=== PATIENT | female | born 1985 | race Caucasian/White ===

== ENCOUNTER 2018-05-23 10:12 | Emergency (ER) | payer OTHER, MEDICAID ==
--- NOTE | 2018-05-23 10:23 | ER Report ---
History and Physical Time Seen By MD: 10:23 HPI/ROS Arrived to [place] from [place] 3 days ago with boyfriend and children. Currently staying with boyfriend's parents. History of anxiety/depression/marijuana use and abuse. Brought in by boyfriend for severe panic attack and SI. States she does not want to live in [place] any longer. States multiple times that she needs to smoke marijuana, and plans to go to [place]. Allergies: Coded Allergies: adhesive (Verified Adverse Reaction, Intermediate, RASH, 05/26/18) NICOTINE PATCH CAUSES RASH AT APPLICATION SITE Home Meds Reported Medications Nicotine Polacrilex (NICORETTE) 2 Mg Gum, 2 MG BC Q1-2H PRN for NICOTINE REPLACEMENT, GUM 05/25/18 Bupropion Hcl (WELLBUTRIN SR) 150 Mg Tablet.er, 150 MG PO QAM, TAB 05/25/18 Hydroxyzine Pamoate (VISTARIL) 50 Mg Capsule, 50 MG PO QHS, CAPSULE 05/25/18 Multivits,Th W-Fe,Other Min (THERA-M) 1 Each Tablet, 1 EACH PO QDAY 05/25/18 Hydroxyzine Pamoate (VISTARIL) 25 Mg Capsule, 25 MG PO QDAY PRN for PANIC ATTACK, CAPSULE YOU CAN TAKE THIS EVERY 24 HOURS NEEDED FOR A PANIC ATTACK 05/23/18 Unable To Obtain Past Medical: Refused Physical Exam GE: Alert, awake, not cooperative CV: RRR no m/r/g Lungds cta b/l Psych: tearful, hyperventilating, endorses SI. No HI Medical Decision Making Data Points Laboratory Hematology Test 05/23/18 10:48 Red Blood Count 4.92 M/uL (4.17-5.56) Mean Corpuscular Volume 95.0 fL (80.0-96.0) Mean Corpuscular Hemoglobin 32.6 pg (26.0-33.0) Mean Corpuscular Hemoglobin Concent 34.3 g/dL (32.0-36.0) Red Cell Distribution Width 13.0 % (11.5-14.5) Mean Platelet Volume 9.0 fL (7.2-11.1) Neutrophils (%) (Auto) 55.9 % (39.4-72.5) Lymphocytes (%) (Auto) 35.1 % (17.6-49.6) Monocytes (%) (Auto) 4.8 % (4.1-12.4) Eosinophils (%) (Auto) 3.5 % (0.4-6.7) Basophils (%) (Auto) 0.7 % (0.3-1.4) Nucleated RBC Relative Count (auto) 0.0 /100WBC Neutrophils # (Auto) 4.6 K/uL (2.0-7.4) Lymphocytes # (Auto) 2.9 K/uL (1.3-3.6) Monocytes # (Auto) 0.4 K/uL (0.3-1.0) Eosinophils # (Auto) 0.3 K/uL (0.0-0.5) Basophils # (Auto) 0.1 K/uL (0.0-0.1) Nucleated RBC Absolute Count (auto) 0.00 K/uL Sodium Level 141 mmol/L (137-145) Potassium Level 4.1 mmol/L (3.5-5.0) Chloride Level 108 mmol/L (98-107) Carbon Dioxide Level 21 mmol/L (22-31) Blood Urea Nitrogen 13 mg/dl (7-18) Creatinine 0.80 mg/dl (0.52-1.04) Glomerular Filtration Rate Calc > 60.0 Random Glucose 119 mg/dl (75-110) Calcium Level 9.3 mg/dl (8.4-10.2) Magnesium Level 2.0 mg/dl (1.7-2.2) Total Bilirubin 0.7 mg/dl (0.2-1.3) Aspartate Amino Transf (AST/SGOT) 27 U/L (0-35) Alanine Aminotransferase (ALT/SGPT) 37 U/L (0-56) Alkaline Phosphatase 68 U/L (0-126) Total Protein 8.1 g/dl (6.3-8.2) Albumin 4.6 g/dl (3.5-5.0) Thyroid Stimulating Hormone (TSH) 2.13 uIU/ml (0.46-4.68) Salicylates Level < 10 mg/L Salicylate Last Dose Date u Acetaminophen Level < 10 ug/ml Serum Alcohol < 10 mg/dl Chemistry Test 05/23/18 10:48 White Blood Count 8.2 k/uL (4.5-11.0) Red Blood Count 4.92 M/uL (4.17-5.56) Hemoglobin 16.0 g/dL (12.0-16.0) Hematocrit 46.7 % (34.0-47.0) Mean Corpuscular Volume 95.0 fL (80.0-96.0) Mean Corpuscular Hemoglobin 32.6 pg (26.0-33.0) Mean Corpuscular Hemoglobin Concent 34.3 g/dL (32.0-36.0) Red Cell Distribution Width 13.0 % (11.5-14.5) Platelet Count 268 K/uL (150-450) Mean Platelet Volume 9.0 fL (7.2-11.1) Neutrophils (%) (Auto) 55.9 % (39.4-72.5) Lymphocytes (%) (Auto) 35.1 % (17.6-49.6) Monocytes (%) (Auto) 4.8 % (4.1-12.4) Eosinophils (%) (Auto) 3.5 % (0.4-6.7) Basophils (%) (Auto) 0.7 % (0.3-1.4) Nucleated RBC Relative Count (auto) 0.0 /100WBC Neutrophils # (Auto) 4.6 K/uL (2.0-7.4) Lymphocytes # (Auto) 2.9 K/uL (1.3-3.6) Monocytes # (Auto) 0.4 K/uL (0.3-1.0) Eosinophils # (Auto) 0.3 K/uL (0.0-0.5) Basophils # (Auto) 0.1 K/uL (0.0-0.1) Nucleated RBC Absolute Count (auto) 0.00 K/uL Glomerular Filtration Rate Calc > 60.0 Calcium Level 9.3 mg/dl (8.4-10.2) Magnesium Level 2.0 mg/dl (1.7-2.2) Total Bilirubin 0.7 mg/dl (0.2-1.3) Aspartate Amino Transf (AST/SGOT) 27 U/L (0-35) Alanine Aminotransferase (ALT/SGPT) 37 U/L (0-56) Alkaline Phosphatase 68 U/L (0-126) Total Protein 8.1 g/dl (6.3-8.2) Albumin 4.6 g/dl (3.5-5.0) Thyroid Stimulating Hormone (TSH) 2.13 uIU/ml (0.46-4.68) Salicylates Level < 10 mg/L Salicylate Last Dose Date u Acetaminophen Level < 10 ug/ml Serum Alcohol < 10 mg/dl Toxicology Test 05/23/18 10:48 Salicylates Level < 10 mg/L Salicylate Last Dose Date u Acetaminophen Level < 10 ug/ml Serum Alcohol < 10 mg/dl ED Course/Re-evaluation ED Course ARrives with moderate to sever panic attack. Non verbal. Tearful. Given haldol. Became angry and uncooperative when discussing marijuana use and abuse. Boyfr toney states she has made multiple suicidal threats. Has access to weapons. Unsafe for discharge. Does not want to be admitted voluntarily. Will admit involuntarily due to potential harm to self. Decision to Disposition Date: May 23, 2018 Decision to Disposition Time: 17:00 Depart Departure Impression: Primary Impression: Passive suicidal ideations Condition: Improved Disposition: XFER TO [facility] JOHN AVALOS MD May 23, 2018 10:23
[2018-05-23 10:30] VITALS: BP 109/99
[2018-05-23] MEDS ORDERED: HYDR25CA83 PO (10:37)
[2018-05-23] MEDS ORDERED: HALOPERIDOL LACT 5 MG/ML VIAL IM ONE (10:50)
[2018-05-23 10:53] LABS: PLATELET COUNT, AUTOMATED 268 K/uL (150-450)
[2018-05-23] MEDS ORDERED: LORazepam 2 MG/ML VIAL IM ONE (12:10)
[2018-05-23] MEDS ORDERED: NICOTINE 21 MG/24 HR PATCH TD ONE (12:55)
== END 2018-05-23 13:34 ==
LOC: ER 10:36
DX: R45.851 Suicidal ideations (principal)
CPT/HCPCS: 36415; 80320; 80329; 83735; 84443; 85025; 96372; 99284; J1630; J2060; 82040; 82247; 82310; 82374; 82435; 82565; 82947; 84075; 84132; 84155; 84295; 84450; 84460; 84520

== ENCOUNTER 2018-05-23 13:08 | Inpatient (IN) | payer OTHER, MEDICAID ==
[~2018-05-23] VITALS: Ht 157.5 cm; Wt 82.1 kg
[~2018-05-23 13:08] MED LIST: HYDR25CA83 PO
[2018-05-23] MEDS ORDERED: MAG HYD/AL HYD/SIMETH 30ML UDC PO PRN (13:30)
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
[2018-05-23 14:05] VITALS: BP 100/64
[2018-05-23 15:00] VITALS: BP 100/64
[2018-05-23 20:31] VITALS: BP 106/74
[2018-05-24 05:56] VITALS: BP 103/60
[2018-05-24] MEDS: MULTIVITAMINS TAB PO SCH (08:17)
[2018-05-24] MEDS ORDERED: NICOTINE 21 MG/24 HR PATCH TD SCH (09:00)
[2018-05-24] MEDS: NICOTINE POLACRILEX 2 MG GUM PO PRN ×4 (10:27→19:47)
[2018-05-24 10:30] VITALS: BP 122/81
[2018-05-24] MEDS ORDERED: buPROPion SR 150 MG TABCR PO ONE (10:40)
[2018-05-24] MEDS ORDERED: hydrOXYzine PAMOATE 25 MG CAP PO PRN (10:40)
[2018-05-24] MEDS ORDERED: lamoTRIgine 100 MG TAB PO SCH (15:40)
[2018-05-24] MEDS ORDERED: buPROPion SR 100 MG TABSR PO SCH (21:00)
[2018-05-24] MEDS ORDERED: hydrOXYzine PAMOATE 25 MG CAP PO SCH (21:00)
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
[2018-05-25 05:55] VITALS: BP 100/72
[2018-05-25] MEDS: MULTIVITAMINS TAB PO SCH (08:01)
[2018-05-25] MEDS ORDERED: buPROPion SR 150 MG TABCR PO SCH (09:00)
[2018-05-25] MEDS ORDERED: MULT-1379 PO (09:33)
[2018-05-25] MEDS ORDERED: HYDR50CA47 PO (09:36)
[2018-05-25] MEDS ORDERED: NICO-219 BC (09:37)
[2018-05-25] MEDS ORDERED: BUPR-126 PO (09:37)
[2018-05-25] MEDS: NICOTINE POLACRILEX 2 MG GUM PO PRN (10:38)
--- NOTE | 2018-05-25 14:53 | BHS Discharge Summary ---
[facility] Discharge Summary Fnow-[id number] Encounter Date: May 25, 2018 [id number] Encounter Time: 07:30 Reason-Hosp/Final Diag (DSM-V): (1) Seasonal affective disorder Hospital Course & Plan: Pt was admitted to [facility] on an emergency long-term. She was cooperative and calm throughout her stay on [facility], stating that she regretted her outburst in the ER the night before, that she said things she didn't mean (specifically expressing suicidal ideation), that she was very distraught over the intensity of the panic attack. She was an active participant in all treatment modalities. She described a seasonal pattern to her depressive disorder. Wellbutrin was started which she found to be well tolerated. Her affect was euthymic if not bright for most of her stay. She did take vistaril at night to help with sleep, and she will use a 25mg dose prn if she feels a panic attack coming on. She at no time expressed suicidal ideation. By 05/15 she was stable for discharge. She will follow up for therapy and medications at [facility]. (2) Panic disorder (3) Cannabis use disorder, mild, abuse Physical Exam Latest Vital Signs Vital Signs 05/24/18 05/25/18 05:56 05:55 Temp 98.5 Pulse 64 Resp 15 B/P (MAP) 100/72 (81) Pulse Ox 95 O2 Delivery Room Air Mental Status Exam General Appearance: Casual, Well Groomed, Good Eye Contact, Cooperative, Polite, Good Interaction Speech: Clear, Spontaneous, Normal Rate, Normal Rhythm, Normal Volume, Normal Tone Mood: Euthymic Affect: Full and Appropriate Thought Process: Organized, Logical, Goal Directed Thought Content: No Suicidal Ideation, No Homicidal Ideation, No Delusions, No Auditory Halllucinations, No Visual Hallucinations, No Thought Broadcasting, No Ideas of Reference, No Obsessions, No Compulsions, No Other Cognition: Alert & Oriented-Person, Alert & Oriented-Place, Alert & Oriented- Time Memory: Immediate, Recent, Remote Intelligence: Average Insight Judgment: Fair Departure Condition: Improved Discharge to: Home Discharge Instructions Home Meds Reported Medications Nicotine Polacrilex (NICORETTE) 2 Mg Gum, 2 MG BC Q1-2H PRN for NICOTINE REPLACEMENT, GUM 05/25/18 Bupropion Hcl (WELLBUTRIN SR) 150 Mg Tablet.er, 150 MG PO QAM, TAB 05/25/18 Hydroxyzine Pamoate (VISTARIL) 50 Mg Capsule, 50 MG PO QHS, CAPSULE 05/25/18 Multivits, W-,Other Min (THERA-M) 1 Each Tablet, 1 EACH PO QDAY 05/25/18 Hydroxyzine Pamoate (VISTARIL) 25 Mg Capsule, 25 MG PO QDAY PRN for PANIC ATTACK, CAPSULE YOU CAN TAKE THIS EVERY 24 HOURS NEEDED FOR A PANIC ATTACK 05/23/18 Multpiple Antipsychotics Used: No Diet: Regular Activity: As Tolerated Special Instructions: Take medications as prescribed. Follow up with outpatient provider for medication management. Follow up with outpatient therapy. Call Crisis Line should symptoms return. KUN KEARNS MD May 25, 2018 14:53
== END 2018-05-25 12:32 | disposition home or self-care (01) | DRG 885 ==
LOC: BHS 13:08
PROVIDERS: ADMIT Psychiatry & Neurology Psychiatry; ATTEND Psychiatry & Neurology Psychiatry
DX: F33.8 Other recurrent depressive disorders (principal); R45.851 Suicidal ideations; F41.0 Panic disorder [episodic paroxysmal anxiety]; F12.10 Cannabis abuse, uncomplicated; F17.210 Nicotine dependence, cigarettes, uncomplicated; F43.12 Post-traumatic stress disorder, chronic; F43.20 Adjustment disorder, unspecified; Z91.419 Personal history of unspecified adult abuse
CPT/HCPCS: 80305; 81001; 81025; Q0177